=== PATIENT | male | born 2000 | race Caucasian/White ===

== ENCOUNTER 2020-02-02 08:00 | Outpatient (REF) | payer OTHER, SELFPAY | END 2020-02-02 08:01 | disposition home or self-care (01) | LOC: HO.SCI 08:00 | DX: Z13.89 Encounter for screening for other disorder (principal) ==

== ENCOUNTER 2020-02-06 12:53 | Outpatient (REF) | payer OTHER, SELFPAY ==
--- NOTE | 2020-02-06 13:01 | MR_ITS ---
EXAMINATION: MR BRAIN WITHOUT AND WITH CONTRAST CLINICAL INFORMATION: Facial pain syndrome, rule out trigeminal lesion versus ethmoid sinus. COMPARISON: No relevant prior imaging. TECHNIQUE: Multiplanar, multisequence MRI of the brain was obtained before and after the intravenous administration of 7.5 mL Gadavist. FINDINGS: Dedicated imaging through the posterior fossa reveals no abnormal mass within the prepontine cistern. The cisternal segments of the 5th cranial nerves are unremarkable and postcontrast images reveal no abnormal nerve root enhancement. Meckel's caves and cavernous sinuses are normal. Cavernous internal carotid artery flow voids are maintained. The anterior lobe of the pituitary gland enhances homogeneously and there is no abnormal suprasellar mass affect or chiasmatic compression. Postcontrast images reveal no abnormal mass or enhancement within the intracranial compartment. No intracranial mass effect or midline shift. Lateral and third ventricles are normal. No hydrocephalus. Midline structures including the cervicomedullary junction are normal. There is no acute territorial infarct. Intracranial vascular flow voids are maintained. No acute bone marrow signal changes. There is no mastoid or middle ear effusion. Retention cysts are visualized within both maxillary sinuses and there is mild to moderate mucosal thickening within the frontal sinuses, ethmoid air cells, and sphenoid sinus. Globes and orbits are grossly symmetric. MR/MR head/brain wo/w con IMPRESSION: Unremarkable examination in that there is no abnormal intracranial mass or enhancement. No evidence of acute territorial infarct. No abnormal enhancement along the expected course of the 5th cranial nerves. Retention cysts are visualized within both maxillary sinuses and there is mild to moderate mucosal thickening within the frontal sinuses, ethmoid air cells, and sphenoid sinus.
== END 2020-02-06 12:54 | disposition home or self-care (01) ==
LOC: HO.MRI 12:53
PROVIDERS: PCP Internal Medicine; Visit Provider Psychiatry & Neurology Neurology
DX: G50.0 Trigeminal neuralgia (principal)
CPT/HCPCS: 70553; A9585